=== PATIENT | female | born 1975 | race African-American/Black ===

== ENCOUNTER 2020-02-06 15:42 | Emergency (ER) | payer SELFPAY ==
[~2020-02-06] VITALS: Ht 160 cm; Wt 90.9 kg
[2020-02-06] MEDS ORDERED: FLUORESCEIN OPHTH TEST STRIP. OS ONE (16:00)
[2020-02-06] MEDS ORDERED: TETRACAINE 0.5% OPHTH SOLUTION 4ML BOTTLE. OS ONE (16:00)
[2020-02-06] MEDS ORDERED: AMOX1TAB61 PO (16:49)
[2020-02-06] MEDS ORDERED: ERYT1OIN6 OP (16:49)
[2020-02-06] MEDS ORDERED: HYDR-3164 PO (16:49)
--- NOTE | 2020-02-06 16:50 | PHYS DOC ---
Past Medical History Past Medical History: No Pertinent History Past Surgical History: No Surgical History Smoking Status: Former Smoker Alcohol Use: None Drug Use: None General Adult EDM: Chief Complaint: EYE PROBLEMS HPI: HPI: Patient is a 44 year old female who presents to the ED today with right eye pain. Patient reports her dog jumping on her and scratching her right eye. Patient denies any vision loss. Describes the pain as sharp and constant to the right eye. Review of Systems: Review of Systems: Constitutional: Denies fever or chills. [] Eyes: Reports right eye scratch from a dog. Denies change in visual acuity. [] Musculoskeletal: Denies back pain or joint pain. [] Integument: Denies rash. [] Neurologic: Denies headache, focal weakness or sensory changes. [] Psychiatric: Denies depression or anxiety. [] Heart Score: Risk Factors: Risk Factors: DM, Current or recent (<one month) smoker, HTN, HLP, family history of CAD, obesity. Risk Scores: Score 0 - 3: 2.5% MACE over next 6 weeks - Discharge Home Score 4 - 6: 20.3% MACE over next 6 weeks - Admit for Clinical Observation Score 7 - 10: 72.7% MACE over next 6 weeks - Early Invasive Strategies Current Medications: Current Medications Medications (Trade) Dose Ordered Sig/Pau Start Time Stop Time Status Last Admin Dose Admin Fluorescein Sodium (Ful-Veda) 1 strip 1X ONCE 02/06/20 16:00 02/06/20 16:02 DC 02/06/20 16:13 1 STRIP Tetracaine HCl (Tetracaine) 1 drop 1X ONCE 02/06/20 16:00 02/06/20 16:02 DC 02/06/20 16:13 1 DROP Allergies: Allergies: Allergies Coded Allergies Type Severity Reaction Last Updated Verified No Known Drug Allergies 01/16/16 No Physical Exam: PE: Constitutional: Well developed, well nourished, no acute distress, non-toxic appearance. [] HENT: Normocephalic, atraumatic, bilateral external ears normal, oropharynx moist, no oral exudates, nose normal. [] Eyes: PERRLA, EOMI, right conjunctive is moderately injected and tearing. Right eye under Phillip lamp Right eye was numbed with tetracaine and stained with fluorescein Corneal abrasion noted to the entire iris. Skin: Warm, dry, no erythema, no rash. [] Back: No tenderness, no CVA tenderness. [] Extremities: No tenderness, no cyanosis, no clubbing, ROM intact, no edema. [] Neurologic: Alert and oriented X 3, normal motor function, normal sensory function, no focal deficits noted. [] Psychologic: Affect normal, judgement normal, mood normal. [] Current Patient Data: Vital Signs: Vital Signs Date Time Temp Pulse Resp B/P (MAP) Pulse Ox O2 Delivery O2 Flow Rate FiO2 02/06/20 15:55 98.0 79 18 158/103 (121) 96 Room Air 98.0 EKG: EKG: [] Radiology/Procedures: Radiology/Procedures: [] Course & Med Decision Making: Course & Med Decision Making Pertinent Labs and Imaging studies reviewed. (See chart for details) This is a 44-year-old female patient presenting to the ED today with a corneal abrasion to the right iris after her dog jumped on her scratching her eye. Tetanus up-to-date. Given prescription for Augmentin and erythromycin. Follow- up with starch factory laborer in 1 to 2 weeks. Kennethon Disclaimer: Dragjuliana Disclaimer: This electronic medical record was generated, in whole or in part, using a voice recognition dictation system. Departure Departure Impression: Primary Impression: Dog scratch Additional Impression: Corneal abrasion, right Qualified Codes: S05.01XA - Injury of conjunctiva and corneal abrasion without foreign body, right eye, initial encounter Disposition: HOME, SELF-CARE Condition: STABLE Referrals: NO PCP (PCP) CAROLINA ENRIQUEZ MD follow up in one week Patient Instructions: Eye - Corneal Abrasion Additional Instructions: You have corneal abrasion to the right eye. Use the prescribed antibiotic until completed. Follow-up with starch factory laborer in 1 to 2 weeks. Scripts Erythromycin Base (Erythromycin) 1 Gm Oint...g. 1 GM OP Q4HRS W/A, #1 MISC Apply 0.5 inch to the right eye every 4 hours while a wake for 7 days Prov: QUENTINAJENNIFER RADIO DESPATCHER 02/06/20 Hydrocodone/Apap 5-325 (NORCO 5-325 TABLET) 1 Each Tablet 1 TAB PO Q6-8HRS PRN for PAIN, #14 TAB Prov: MUTUNGAJENNIFER RADIO DESPATCHER 02/06/20 Amoxicillin/Potassium Clav (AUGMENTIN 875-125 TABLET) 1 Each Tablet 1 TAB PO BID for 10 Days, #20 TAB 0 Refills Prov: JENNIFER MESA APRN 02/06/20 Justicifation of Admission Dx: Justifications for Admission: Justification of Admission Dx: N/A JENNIFER MESA APRN Feb 06, 2020 16:49
[2020-02-06 17:00] VITALS: BP 148/94
== END 2020-02-06 17:00 | disposition home or self-care (01) ==
LOC: ER 15:42
DX: S05.01XA Injury of conjunctiva and corneal abrasion without foreign body, right eye, initial encounter (principal); Z87.891 Personal history of nicotine dependence; W54.8XXA Other contact with dog, initial encounter; Y93.89 Activity, other specified; Y92.89 Other specified places as the place of occurrence of the external cause; Y99.8 Other external cause status
CPT/HCPCS: 99283

== ENCOUNTER 2020-06-02 11:20 | Emergency (ER) | payer SELFPAY ==
[~2020-06-02] VITALS: Ht 160 cm; Wt 100.0 kg
[~2020-06-02 11:20] MED LIST: AMOX1TAB61 PO; ERYT1OIN6 OP; HYDR-3164 PO
[2020-06-02] MEDS ORDERED: FLUORESCEIN OPHTH TEST STRIP. OD ONE (12:45)
[2020-06-02] MEDS ORDERED: TETRACAINE 0.5% OPHTH SOLUTION 4ML BOTTLE. OD ONE (12:45)
[2020-06-02] MEDS ORDERED: ERYTHROMYCIN 0.5% OPHTH OINTMENT 1GM TUBE. OD ONE (13:15)
[2020-06-02] MEDS ORDERED: HYDROcodone/APAP 5/325MG 1 TAB TABLET PO ONE (13:15)
[2020-06-02] MEDS ORDERED: HYDR-2761 PO (13:22)
[2020-06-02] MEDS ORDERED: AMOX1TAB61 PO (13:22)
[2020-06-02] MEDS ORDERED: ERYT1OIN6 OD (13:22)
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
[2020-06-02 13:43] VITALS: BP 158/103
== END 2020-06-02 13:43 | disposition home or self-care (01) ==
LOC: ER 11:20
DX: S05.01XA Injury of conjunctiva and corneal abrasion without foreign body, right eye, initial encounter (principal); Z87.891 Personal history of nicotine dependence; X58.XXXA Exposure to other specified factors, initial encounter; Y93.89 Activity, other specified; Y92.89 Other specified places as the place of occurrence of the external cause; Y99.8 Other external cause status
CPT/HCPCS: 99283

== ENCOUNTER 2020-08-19 01:06 | Emergency (ER) | payer SELFPAY ==
[~2020-08-19] VITALS: Ht 162.6 cm; Wt 91.1 kg
[~2020-08-19 01:06] MED LIST changes: +ERYT1OIN6 OD; +HYDR-2761 PO
[2020-08-19 01:10] VITALS: BP 185/111
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
[2020-08-19] MEDS ORDERED: NEOMY/BACITR/POLYMYXIN OINT PACKET. TP ONE (02:15)
[2020-08-19] MEDS ORDERED: LIDOCAINE 2%/EPI 1:100,000 20 ML VIAL. INJ ONE (02:15)
[2020-08-19] MEDS ORDERED: TETRACAINE 0.5% OPHTH SOLUTION 4ML BOTTLE. OS ONE (02:30)
[2020-08-19] MEDS ORDERED: ERYTHROMYCIN 0.5% OPHTH OINTMENT 1GM TUBE. OS ONE (02:30)
[2020-08-19] MEDS ORDERED: FLUORESCEIN OPHTH TEST STRIP. OS ONE (02:30)
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
[2020-08-19] MEDS ORDERED: AMOXICILLIN/K CLAV 875/125MG TABLET. PO ONE (03:30)
[2020-08-19] MEDS ORDERED: fentaNYL PF VIAL 100 MCG/2 ML VIAL IM ONE (03:30)
[2020-08-19] MEDS ORDERED: ONDANSETRON ODT 4 MG TAB.RAPDIS. PO ONE (04:00)
[2020-08-19] MEDS ORDERED: AMOX1TAB61 PO (05:08)
[2020-08-19] MEDS ORDERED: HYDR-2761 PO (05:08)
[2020-08-19] MEDS ORDERED: HYDROcodone/APAP 5/325MG 1 TAB TABLET PO ONE (05:30)
== END 2020-08-19 05:16 | disposition home or self-care (01) ==
LOC: ER 01:06 → EEVIPCON 01:06 → ER 05:16
DX: S02.2XXA Fracture of nasal bones, initial encounter for closed fracture (principal); S01.81XA Laceration without foreign body of other part of head, initial encounter; R60.0 Localized edema; I10 Essential (primary) hypertension; F17.200 Nicotine dependence, unspecified, uncomplicated; Z98.51 Tubal ligation status; X58.XXXA Exposure to other specified factors, initial encounter; Y93.89 Activity, other specified; Y92.89 Other specified places as the place of occurrence of the external cause; Y99.8 Other external cause status
CPT/HCPCS: 12013; 70450; 70486; 96372; 99285; J3010; J3490

== ENCOUNTER 2020-08-27 10:44 | Emergency (ER) | payer SELFPAY ==
[~2020-08-27] VITALS: Ht 162.6 cm; Wt 90.9 kg
[2020-08-27 12:00] VITALS: BP 157/110
--- NOTE | 2020-08-27 12:10 | PHYS DOC ---
Past Medical History Past Medical History: Hypertension Past Surgical History: Tubal ligation Smoking Status: Current Every Day Smoker Alcohol Use: None Drug Use: None General Adult EDM: Chief Complaint: SUTURE/STAPLE REMOVAL HPI: HPI: Patient is a 45 year old female who presents to the ED today for suture removal from the left eyebrow, sutures have been in for 10 days, patient states she came to the ED 5 days ago and she was told to wait 5 more days total of 10 days. Review of Systems: Review of Systems: Constitutional: Denies fever or chills. [] Musculoskeletal: Denies back pain or joint pain. [] Integument: Visit for suture removal Neurologic: Denies headache, focal weakness or sensory changes. [] Psychiatric: Denies depression or anxiety. [] Heart Score: C/O Chest Pain: N/A Risk Factors: Risk Factors: DM, Current or recent (<one month) smoker, HTN, HLP, family histo ry of CAD, obesity. Risk Scores: Score 0 - 3: 2.5% MACE over next 6 weeks - Discharge Home Score 4 - 6: 20.3% MACE over next 6 weeks - Admit for Clinical Observation Score 7 - 10: 72.7% MACE over next 6 weeks - Early Invasive Strategies Allergies: Allergies: Allergies Coded Allergies Type Severity Reaction Last Updated Verified No Known Drug Allergies 01/16/16 No Physical Exam: PE: Constitutional: Well developed, well nourished, no acute distress, non-toxic appearance. [] Skin: Warm, dry, left eyebrow with a well approximated laceration site with interrupted sutures that were removed by the registered nurse. No signs of infection. Back: No tenderness, no CVA tenderness. [] Extremities: No tenderness, no cyanosis, no clubbing, ROM intact, no edema. [] Neurologic: Alert and oriented X 3, normal motor function, normal sensory function, no focal deficits noted. [] Psychologic: Affect normal, judgement normal, mood normal. [] EKG: EKG: [] Radiology/Procedures: Radiology/Procedures: [] Course & Med Decision Making: Course & Med Decision Making Pertinent Labs and Imaging studies reviewed. (See chart for details) This is a 45-year-old female patient presenting to the ED today for suture removal from the left eyebrow, sutures have been in for 10 days. Sutures were removed by the RN. Tetanus up-to-date. Return precautions provided Nael Disclaimer: Nael Disclaimer: This electronic medical record was generated, in whole or in part, using a voice recognition dictation system. Departure Departure Impression: Primary Impression: Visit for suture removal Disposition: HOME / SELF CARE / HOMELESS Condition: STABLE Referrals: NO PCP (PCP) Follow-up with your own doctor as needed Patient Instructions: Suture Removal-Brief Additional Instructions: You had stitches removed from your left eyebrow. Keep the area clean and dry. Consider using [id number] remedies like Mederma or bio oil for scar minimization. JENNIFER MESA APRN Aug 27, 2020 12:09
== END 2020-08-27 12:15 | disposition home or self-care (01) ==
LOC: ER 10:44
DX: S01.112D Laceration without foreign body of left eyelid and periocular area, subsequent encounter (principal); I10 Essential (primary) hypertension; F17.200 Nicotine dependence, unspecified, uncomplicated; Z98.51 Tubal ligation status; X58.XXXD Exposure to other specified factors, subsequent encounter
CPT/HCPCS: 99282